=== PATIENT | male | born 1945 | race Caucasian/White ===

== ENCOUNTER 2017-12-30 16:33 | Inpatient (IN) ==
--- NOTE | 2017-12-30 17:33 | ED ---
HPI General Chief Complaint: Psychiatric Symptoms Stated Complaint: VCSO/Psych Eval Time Seen by Provider: 12/30/17 16:47 Source: patient Mode of arrival: other ([facility]) Limitations: no limitations History of Present Illness HPI Narrative: 72-year-old male, homeless, presents to the emergency department via VCSO for evaluation as a Garber act. The officer states he has trespassed numerous times on a property he was evicted from 2 months ago. The officer states his parents months ago and since then he has been homeless. The officer was concerned about foot problems which is a reason for his visit today. He states patient was found sleeping in his feces and patient thought it was ok. Related Data Home Medications Medication Instructions Recorded Confirmed No Known Home Medications 12/30/17 12/30/17 Previous Rx's Medication Instructions Recorded sulfamethoxazole-trimethoprim 1 tab PO Q12H #14 tab 12/30/17 [Bactrim DS] Allergies Allergy/AdvReac Type Severity Reaction Status Date / Time No Known Allergies Allergy Unverified 12/30/17 16:48 Review of Systems ROS: all other systems reviewed are negative [facility] Medical History Medical History Diverticulitis (Acute) Social History Social History Substance History: No History of Abuse Second Hand Smoke Exposure: No Smoking Status: Current every day smoker Tobacco Type: Cigarettes How Often Do You Have a Drink Containing Alcohol: 4 or more times a week Recent Out of Country Travel within the Last 8 Weeks: No Immunization History Tetanus Immunization: Unsure Hx Influenza Vaccine This Season: No Exam Narrative Exam Narrative: GENERAL: WD, thin, disheveled and malodorous SKIN: Focused skin assessment warm/dry. HEAD: Atraumatic. Normocephalic. EYES: Pupils equal and round. No scleral icterus. No injection or drainage. ENT: No nasal bleeding or discharge. Mucous membranes pink and moist. NECK: Trachea midline. No JVD. CARDIOVASCULAR: Regular rate and rhythm. No murmur appreciated. RESPIRATORY: No accessory muscle use. Clear to auscultation. Breath sounds equal bilaterally. GASTROINTESTINAL: Abdomen soft, non-tender, nondistended. Hepatic and splenic margins not palpable. MUSCULOSKELETAL: No obvious deformities. No clubbing. No cyanosis. No edema. Bilateral feet-skin removed with unwrapping gauze exposing friable tissue. erythema without edema to feet NEUROLOGICAL: Awake and alert. No obvious cranial nerve deficits. Motor grossly within normal limits. Normal speech. PSYCHIATRIC: Appropriate mood and affect; insight and judgment normal.He is rather pleasant and answers questions appropriately. Course Initial Documented Vital Signs Temperature 97.3 F L 12/30/17 16:48 Pulse Rate 108 H 12/30/17 16:48 Respiratory Rate 18 12/30/17 16:48 Blood Pressure 116/62 12/30/17 16:48 Pulse Oximetry 97 12/30/17 16:48 Last Documented Vital Signs Temperature 98.8 F 01/02/18 08:00 Pulse Rate 89 01/02/18 08:00 Respiratory Rate 18 01/02/18 08:00 Blood Pressure 106/68 01/02/18 08:00 Pulse Oximetry 98 01/02/18 08:00 Sign Out Sign Out Data: Patient Sign Out occurred on 12/30/17 at 19:47. Patient's care was discussed, and care was transferred from Jodee Cuba to Dexter Elizabeth. Sign Out Comment: patient pending xray of right shoulder, xray of chest shows an anterior dislocation -patient reports that he has had history of dislocations to his right shoulder in the past, patient with no pain to his right shoulder, he is able to range of motion his shoulder without any difficulty. 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 Last updated by Jodee Cuba at 12/30/17 19:47 Post-Handoff Eval: patient has clinically a chronic anterior shoulder dislocation, clinically patinet has no pain, and very good range of motion able to rotate, abduct and adduct without any difficulty... thus no need reduction. will provide ivf to improve mild hyponatremia patient is initially cleared Medical Decision Making SALMA Attestation SALMA supervised visit: Yes Attestation: I, Dr. Cuba, have reviewed the advance practice practitioner's documentation and am in agreement, met with the patient face to face, made the diagnosis, and the medical decision making was done by me. *My assessment and Findings: Patient will need psych evaluation after he is medically cleared MDM Narrative Medical decision making narrative: 72-year-old male brought in by [facility]'s office as a Garber act. Patient apparently had been sleeping in his own feces and did not see a problem with it. They state that he had been trespassing numerous times the location where he previously lived. He denies suicidal or homicidal ideations. Physical exam findings demonstrate a well-developed, thin, disheveled and unkempt 72-year-old male in no acute distress. Patient answers questions appropriately and is rather pleasant. Bilateral lower extremities demonstrate poor foot care. Gauze on feet had apparently been present for some time although patient states that it been there since Monday. Mild erythema of the legs from mid almeida distally. Will treat for possible developing cellulitis. With the assistance of the nurse, cleanse bilateral feet and wrapped with Xeroform and nonstick gauze. Labs are significant for elevated alcohol at 84, no leukocytosis, hyponatremia at 129. I suspect patient drinks alcohol regularly although he initially denied it. Labs are still pending as of transfer of care. CXR demonstrates dislocated shoulder although pt has FROM of shoulder without pain or restriction. Ordered shoulder xray for further evaluation. Medical Screen Exam Complete: Yes Emergency Medical Condition: Yes Differential Diagnosis Differential Diagnosis: Bilateral lower extremity cellulitis, psychosis, delirium, medical clearance exam Lab Data Result diagrams: 01/02/18 06:00 01/02/18 06:00 Lab Results 12/30/17 12/30/17 12/30/17 Range/Units 17:00 17:00 17:00 WBC 7.4 (4.0-11.0) th/mm3 RBC 4.04 L (4.50-5.90) mil/mm3 Hgb 13.8 (13.0-17.0) gm/dL Hct 41.3 (39.0-51.0) % MCV 102.2 H (80.0-100.0) fL MCH 34.3 H (27.0-34.0) pg MCHC 33.5 (32.0-36.0) % RDW 13.1 (11.6-17.2) % Plt Count 306 (150-450) th/mm3 MPV 7.2 (7.0-11.0) fL Neut % (Auto) 73.4 H (16.0-70.0) % Lymph % (Auto) 15.0 (9.0-44.0) % Snyder % (Auto) 10.9 H (0.0-8.0) % Eos % (Auto) 0.5 (0.0-4.0) % Baso % (Auto) 0.2 (0.0-2.0) % Neut # (Auto) 5.4 (1.8-7.7) th/mm3 Lymph # (Auto) 1.1 (1.0-4.8) th/mm3 Snyder # (Auto) 0.8 (0.0-0.9) th/mm3 Eos # (Auto) 0.0 (0.0-0.4) th/mm3 Baso # (Auto) 0.0 (0.0-0.2) th/mm3 WBC Differential . Differential Comment Auto diff final PT (9.8-11.6) sec INR Ratio APTT (24.3-30.1) sec Sodium 129 L (136-145) meq/L Potassium 4.1 (3.5-5.1) meq/L Chloride 92 L (98-107) meq/L Carbon Dioxide 27.0 (21.0-32.0) meq/L Anion Gap 10 (5-15) meq/L BUN 6 L (7-18) mg/dL Creatinine 0.61 (0.60-1.30) mg/dL Estimated GFR Greater than 89 (>89) mL/min POC Glucose (68-110) mg/dl Random Glucose 90 (74-106) mg/dL Calcium 8.2 L (8.5-10.1) mg/dL Prot Corrected Calcium (8.5-10.1) mg/dL Phosphorus (2.5-4.9) mg/dL Iron (65-175) mcg/dL TIBC (250-450) mcg/dL % Saturation (20-50) % Ferritin (26-388) ng/mL Total Bilirubin 0.7 (0.2-1.0) mg/dL AST 29 (15-37) U/L ALT 21 (12-78) U/L Alkaline Phosphatase 98 (45-117) U/L Total Creatine Kinase 65 (39-308) U/L Total Protein 7.0 (6.4-8.2) g/dL Albumin 2.7 L (3.4-5.0) g/dL Vitamin B12 (193-986) pg/mL TSH 2.470 (0.358-3.740) uIU/mL Urine Color (Yellw/Straw) Urine Clarity (Clear) Urine pH (5.0-8.5) Ur Specific [place] (1.002-1.035) Urine Protein (Neg-Trace) mg/dL Urine Glucose (UA) (Negative) mg/dL Urine Ketones (Negative) mg/dL Urine Occult Blood (Negative) Urine Nitrate (Negative) Urine Bilirubin (Negative) Urine Urobilinogen (Less than 2) mg/dL Ur Leukocyte Esterase (Negative) Urine RBC (0-3) /hpf Urine Bacteria (None) /hpf Micro UA Comment Ur Microscopic Review Urine Culture Comments Urine Opiates Screen (Neg) Ur Barbiturates Screen (Neg) Ur Amphetamines Screen (Neg) U Benzodiazepines Scrn (Neg) Urine Cocaine Screen (Neg) U Cannabinoids Screen (Neg) Serum Alcohol 84 H (0-5) mg/dL 12/30/17 12/30/17 12/30/17 Range/Units 18:20 20:31 20:31 WBC (4.0-11.0) th/mm3 RBC (4.50-5.90) mil/mm3 Hgb (13.0-17.0) gm/dL Hct (39.0-51.0) % MCV (80.0-100.0) fL MCH (27.0-34.0) pg MCHC (32.0-36.0) % RDW (11.6-17.2) % Plt Count (150-450) th/mm3 MPV (7.0-11.0) fL Neut % (Auto) (16.0-70.0) % Lymph % (Auto) (9.0-44.0) % Snyder % (Auto) (0.0-8.0) % Eos % (Auto) (0.0-4.0) % Baso % (Auto) (0.0-2.0) % Neut # (Auto) (1.8-7.7) th/mm3 Lymph # (Auto) (1.0-4.8) th/mm3 Snyder # (Auto) (0.0-0.9) th/mm3 Eos # (Auto) (0.0-0.4) th/mm3 Baso # (Auto) (0.0-0.2) th/mm3 WBC Differential Differential Comment PT 10.7 (9.8-11.6) sec INR 1.1 Ratio APTT 33.1 H (24.3-30.1) sec Sodium (136-145) meq/L Potassium (3.5-5.1) meq/L Chloride (98-107) meq/L Carbon Dioxide (21.0-32.0) meq/L Anion Gap (5-15) meq/L BUN (7-18) mg/dL Creatinine (0.60-1.30) mg/dL Estimated GFR (>89) mL/min POC Glucose (68-110) mg/dl Random Glucose (74-106) mg/dL Calcium (8.5-10.1) mg/dL Prot Corrected Calcium (8.5-10.1) mg/dL Phosphorus (2.5-4.9) mg/dL Iron (65-175) mcg/dL TIBC (250-450) mcg/dL % Saturation (20-50) % Ferritin (26-388) ng/mL Total Bilirubin (0.2-1.0) mg/dL AST (15-37) U/L ALT (12-78) U/L Alkaline Phosphatase (45-117) U/L Total Creatine Kinase (39-308) U/L Total Protein (6.4-8.2) g/dL Albumin (3.4-5.0) g/dL Vitamin B12 (193-986) pg/mL TSH (0.358-3.740) uIU/mL Urine Color Yellow (Yellw/Straw) Urine Clarity Clear (Clear) Urine pH 7.0 (5.0-8.5) Ur Specific [place] 1.006 (1.002-1.035) Urine Protein Negative (Neg-Trace) mg/dL Urine Glucose (UA) Negative (Negative) mg/dL Urine Ketones Negative (Negative) mg/dL Urine Occult Blood Negative (Negative) Urine Nitrate Negative (Negative) Urine Bilirubin Negative (Negative) Urine Urobilinogen 4 or greater (Less than 2) mg/dL Ur Leukocyte Esterase Negative (Negative) Urine RBC Less than 1 (0-3) /hpf Urine Bacteria Rare H (None) /hpf Micro UA Comment Culture not ind Ur Microscopic Review Not Reportable Urine Culture Comments Culture not ind Urine Opiates Screen Neg (Neg) Ur Barbiturates Screen Neg (Neg) Ur Amphetamines Screen Neg (Neg) U Benzodiazepines Scrn Neg (Neg) Urine Cocaine Screen Neg (Neg) U Cannabinoids Screen Neg (Neg) Serum Alcohol (0-5) mg/dL 01/01/18 01/01/18 01/01/18 Range/Units 09:29 12:38 23:16 WBC (4.0-11.0) th/mm3 RBC (4.50-5.90) mil/mm3 Hgb (13.0-17.0) gm/dL Hct (39.0-51.0) % MCV (80.0-100.0) fL MCH (27.0-34.0) pg MCHC (32.0-36.0) % RDW (11.6-17.2) % Plt Count (150-450) th/mm3 MPV (7.0-11.0) fL Neut % (Auto) (16.0-70.0) % Lymph % (Auto) (9.0-44.0) % Snyder % (Auto) (0.0-8.0) % Eos % (Auto) (0.0-4.0) % Baso % (Auto) (0.0-2.0) % Neut # (Auto) (1.8-7.7) th/mm3 Lymph # (Auto) (1.0-4.8) th/mm3 Snyder # (Auto) (0.0-0.9) th/mm3 Eos # (Auto) (0.0-0.4) th/mm3 Baso # (Auto) (0.0-0.2) th/mm3 WBC Differential Differential Comment PT (9.8-11.6) sec INR Ratio APTT (24.3-30.1) sec Sodium 132 L (136-145) meq/L Potassium 3.5 (3.5-5.1) meq/L Chloride 98 (98-107) meq/L Carbon Dioxide 25.4 (21.0-32.0) meq/L Anion Gap 9 (5-15) meq/L BUN 3 L (7-18) mg/dL Creatinine 0.49 L (0.60-1.30) mg/dL Estimated GFR Greater than 89 (>89) mL/min POC Glucose 120 H 101 (68-110) mg/dl Random Glucose 65 L (74-106) mg/dL Calcium 8.0 L (8.5-10.1) mg/dL Prot Corrected Calcium (8.5-10.1) mg/dL Phosphorus (2.5-4.9) mg/dL Iron (65-175) mcg/dL TIBC (250-450) mcg/dL % Saturation (20-50) % Ferritin (26-388) ng/mL Total Bilirubin 0.7 (0.2-1.0) mg/dL AST 24 (15-37) U/L ALT 17 (12-78) U/L Alkaline Phosphatase 81 (45-117) U/L Total Creatine Kinase (39-308) U/L Total Protein 5.9 L D (6.4-8.2) g/dL Albumin 2.1 L D (3.4-5.0) g/dL Vitamin B12 (193-986) pg/mL TSH (0.358-3.740) uIU/mL Urine Color (Yellw/Straw) Urine Clarity (Clear) Urine pH (5.0-8.5) Ur Specific [place] (1.002-1.035) Urine Protein (Neg-Trace) mg/dL Urine Glucose (UA) (Negative) mg/dL Urine Ketones (Negative) mg/dL Urine Occult Blood (Negative) Urine Nitrate (Negative) Urine Bilirubin (Negative) Urine Urobilinogen (Less than 2) mg/dL Ur Leukocyte Esterase (Negative) Urine RBC (0-3) /hpf Urine Bacteria (None) /hpf Micro UA Comment Ur Microscopic Review Urine Culture Comments Urine Opiates Screen (Neg) Ur Barbiturates Screen (Neg) Ur Amphetamines Screen (Neg) U Benzodiazepines Scrn (Neg) Urine Cocaine Screen (Neg) U Cannabinoids Screen (Neg) Serum Alcohol (0-5) mg/dL 01/02/18 01/02/18 01/02/18 Range/Units 06:00 06:00 06:00 WBC 5.5 (4.0-11.0) th/mm3 RBC 3.55 L (4.50-5.90) mil/mm3 Hgb 12.4 L (13.0-17.0) gm/dL Hct 35.6 L (39.0-51.0) % MCV 100.4 H (80.0-100.0) fL MCH 35.0 H (27.0-34.0) pg MCHC 34.8 (32.0-36.0) % RDW 13.0 (11.6-17.2) % Plt Count 253 (150-450) th/mm3 MPV 6.9 L (7.0-11.0) fL Neut % (Auto) 66.1 (16.0-70.0) % Lymph % (Auto) 21.2 (9.0-44.0) % Snyder % (Auto) 11.6 H (0.0-8.0) % Eos % (Auto) 0.8 (0.0-4.0) % Baso % (Auto) 0.3 (0.0-2.0) % Neut # (Auto) 3.7 (1.8-7.7) th/mm3 Lymph # (Auto) 1.2 (1.0-4.8) th/mm3 Snyder # (Auto) 0.6 (0.0-0.9) th/mm3 Eos # (Auto) 0.0 (0.0-0.4) th/mm3 Baso # (Auto) 0.0 (0.0-0.2) th/mm3 WBC Differential . Differential Comment Auto diff final PT (9.8-11.6) sec INR Ratio APTT (24.3-30.1) sec Sodium 135 L (136-145) meq/L Potassium 3.4 L (3.5-5.1) meq/L Chloride 99 (98-107) meq/L Carbon Dioxide 26.9 (21.0-32.0) meq/L Anion Gap 9 (5-15) meq/L BUN 5 L (7-18) mg/dL Creatinine 0.47 L (0.60-1.30) mg/dL Estimated GFR Greater than 89 (>89) mL/min POC Glucose (68-110) mg/dl Random Glucose 80 (74-106) mg/dL Calcium 7.7 L Cancelled (8.5-10.1) mg/dL Prot Corrected Calcium 8.4 L Cancelled (8.5-10.1) mg/dL Phosphorus (2.5-4.9) mg/dL Iron 27 L (65-175) mcg/dL TIBC 148 L (250-450) mcg/dL % Saturation 18.2 L (20-50) % Ferritin 690 H (26-388) ng/mL Total Bilirubin (0.2-1.0) mg/dL AST (15-37) U/L ALT (12-78) U/L Alkaline Phosphatase (45-117) U/L Total Creatine Kinase (39-308) U/L Total Protein 5.8 L Cancelled (6.4-8.2) g/dL Albumin (3.4-5.0) g/dL Vitamin B12 180 L (193-986) pg/mL TSH (0.358-3.740) uIU/mL Urine Color (Yellw/Straw) Urine Clarity (Clear) Urine pH (5.0-8.5) Ur Specific [place] (1.002-1.035) Urine Protein (Neg-Trace) mg/dL Urine Glucose (UA) (Negative) mg/dL Urine Ketones (Negative) mg/dL Urine Occult Blood (Negative) Urine Nitrate (Negative) Urine Bilirubin (Negative) Urine Urobilinogen (Less than 2) mg/dL Ur Leukocyte Esterase (Negative) Urine RBC (0-3) /hpf Urine Bacteria (None) /hpf Micro UA Comment Ur Microscopic Review Urine Culture Comments Urine Opiates Screen (Neg) Ur Barbiturates Screen (Neg) Ur Amphetamines Screen (Neg) U Benzodiazepines Scrn (Neg) Urine Cocaine Screen (Neg) U Cannabinoids Screen (Neg) Serum Alcohol (0-5) mg/dL 01/02/18 01/02/18 Range/Units 06:00 08:38 WBC (4.0-11.0) th/mm3 RBC (4.50-5.90) mil/mm3 Hgb (13.0-17.0) gm/dL Hct (39.0-51.0) % MCV (80.0-100.0) fL MCH (27.0-34.0) pg MCHC (32.0-36.0) % RDW (11.6-17.2) % Plt Count (150-450) th/mm3 MPV (7.0-11.0) fL Neut % (Auto) (16.0-70.0) % Lymph % (Auto) (9.0-44.0) % Snyder % (Auto) (0.0-8.0) % Eos % (Auto) (0.0-4.0) % Baso % (Auto) (0.0-2.0) % Neut # (Auto) (1.8-7.7) th/mm3 Lymph # (Auto) (1.0-4.8) th/mm3 Snyder # (Auto) (0.0-0.9) th/mm3 Eos # (Auto) (0.0-0.4) th/mm3 Baso # (Auto) (0.0-0.2) th/mm3 WBC Differential Differential Comment PT (9.8-11.6) sec INR Ratio APTT (24.3-30.1) sec Sodium (136-145) meq/L Potassium (3.5-5.1) meq/L Chloride (98-107) meq/L Carbon Dioxide (21.0-32.0) meq/L Anion Gap (5-15) meq/L BUN (7-18) mg/dL Creatinine (0.60-1.30) mg/dL Estimated GFR (>89) mL/min POC Glucose 87 (68-110) mg/dl Random Glucose (74-106) mg/dL Calcium (8.5-10.1) mg/dL Prot Corrected Calcium (8.5-10.1) mg/dL Phosphorus 2.9 (2.5-4.9) mg/dL Iron (65-175) mcg/dL TIBC (250-450) mcg/dL % Saturation (20-50) % Ferritin (26-388) ng/mL Total Bilirubin (0.2-1.0) mg/dL AST (15-37) U/L ALT (12-78) U/L Alkaline Phosphatase (45-117) U/L Total Creatine Kinase (39-308) U/L Total Protein (6.4-8.2) g/dL Albumin (3.4-5.0) g/dL Vitamin B12 (193-986) pg/mL TSH (0.358-3.740) uIU/mL Urine Color (Yellw/Straw) Urine Clarity (Clear) Urine pH (5.0-8.5) Ur Specific [place] (1.002-1.035) Urine Protein (Neg-Trace) mg/dL Urine Glucose (UA) (Negative) mg/dL Urine Ketones (Negative) mg/dL Urine Occult Blood (Negative) Urine Nitrate (Negative) Urine Bilirubin (Negative) Urine Urobilinogen (Less than 2) mg/dL Ur Leukocyte Esterase (Negative) Urine RBC (0-3) /hpf Urine Bacteria (None) /hpf Micro UA Comment Ur Microscopic Review Urine Culture Comments Urine Opiates Screen (Neg) Ur Barbiturates Screen (Neg) Ur Amphetamines Screen (Neg) U Benzodiazepines Scrn (Neg) Urine Cocaine Screen (Neg) U Cannabinoids Screen (Neg) Serum Alcohol (0-5) mg/dL Imaging Data Radiologist's impression: Chest X-Ray 12/30/17 17:46 CONCLUSION: No acute cardiopulmonary disease. Anterior dislocation of the right shoulder. Head CT 12/30/17 17:46 CONCLUSION: Slight chronic small vessel ischemic and atrophic changes chronic sinusitis . Shoulder X-Ray 12/30/17 19:43 CONCLUSION: Anterior shoulder dislocation on the right. Discharge Plan Discharge Disposition Patient Disposition: 30 Still Patient Discharge Condition Condition: Stable Discharge Details Diagnosis: Trench feet, Encounter for medical screening examination Physicians Team ED Provider: Dexter Elizabeth ED Midlevel Provider: Anisha Curtis Primary Care Provider: Primary Care Elena King Attending Provider: Shayla Umaña Other Providers: [facility],Agency ; Dragan Mota ; [facility],Agency Status ED Status: Left Department Discharge Information Discharge Date/Time: 12/31/17 21:41
[2017-12-30] MEDS ORDERED: Sod Chloride 0.9% Inj 1,000 ML IV.SIG SCH ×2 (18:00→19:45)
[2017-12-30 18:13] LABS: Baso % (Auto) 0.2 % (0.0-2.0); Eos % (Auto) 0.5 % (0.0-4.0); Hematocrit 41.3 % (39.0-51.0); Hemoglobin 13.8 gm/dL (13.0-17.0); Lymph # (Auto) 1.1 th/mm3 (1.0-4.8); Mean Corpuscular HGB Conc 33.5 % (32.0-36.0); Mean Corpuscular Hemoglobin 34.3 pg (27.0-34.0); Mean Corpuscular Volume 102.2 fL (80.0-100.0); Mean Platelet Volume 7.2 fL (7.0-11.0); Mono # (Auto) 0.8 th/mm3 (0.0-0.9); Mono % (Auto) 10.9 % (0.0-8.0); Neut # (Auto) 5.4 th/mm3 (1.8-7.7); Neut % (Auto) 73.4 % (16.0-70.0); Platelet Count 306 th/mm3 (150-450); Red Blood Count 4.04 mil/mm3 (4.50-5.90); Red Cell Distribution Width 13.1 % (11.6-17.2); White Blood Count 7.4 th/mm3 (4.0-11.0)
[2017-12-30 18:15] LABS: Albumin 2.7 g/dL (3.4-5.0); Anion Gap 10 meq/L (5-15); Aspartate Aminotransferase 29 U/L (15-37); Blood Urea Nitrogen 6 mg/dL (7-18); Calcium 8.2 mg/dL (8.5-10.1); Chloride 92 meq/L (98-107); Glomerular Filtration Rate Greater Than 89 mL/min (>89); Glucose,Random 90 mg/dL (74-106); Potassium 4.1 meq/L (3.5-5.1); Sodium 129 meq/L (136-145)
[2017-12-30 18:26] LABS: Alanine Aminotransferase 21 U/L (12-78); Alkaline Phosphatase 98 U/L (45-117)
--- NOTE | 2017-12-30 18:28 | CT ---
EXAM DATE: 12/30/2017 6:20 PM EDT AGE/SEX: 72 years / Male INDICATIONS: Altered mental status. CLINICAL DATA: This is the patient's initial encounter. Patient reports that signs and symptoms have been present for 1 day and indicates a pain score of 0/10. MEDICAL/SURGICAL HISTORY: Diverticulitis. . hernia repair RADIATION DOSE: 56.35 CTDI (mGy) COMPARISON: No prior exams available for comparison. TECHNIQUE: CT of the head without contrast. Using automated exposure control and adjustment of the mA and/or kV according to patient size, radiation dose was kept as low as reasonably achievable to ob tain optimal diagnostic quality images. DICOM format image data is available electronically for revi ew and comparison. FINDINGS: There is no evidence for intracranial hemorrhage, mass effect, mass lesions, or edema. The visualized bony structures appear intact. Slight degree of brain atrophy is seen. Slight periventri cular white matter changes are seen nonspecific mostly consistent with chronic small vessel ischemic changes. There are no signs of acute infarction for technique. There is mild mucoperiosteal thickeni ng within some of the sinuses mainly the ethmoid air cells. CONCLUSION: Slight chronic small vessel ischemic and atrophic changes chronic sinusitis . Electronically signed by: Victorino Crawley MD 12/30/2017 6:27 PM EDT
[2017-12-30 18:29] LABS: Alcohol 84 mg/dL (0-5)
--- NOTE | 2017-12-30 18:30 | XR ---
EXAM DATE: 12/30/2017 6:26 PM EDT AGE/SEX: 72 years / Male INDICATIONS: Shortness of breath. Open wounds on bilateral feet. CLINICAL DATA: This is the patient's initial encounter. Patient reports that signs and symptoms have been present for 2 weeks and indicates a pain score of 5/10. MEDICAL/SURGICAL HISTORY: None. None. COMPARISON: No prior exams available for comparison. FINDINGS: The lungs are clear without infiltrate, nodule, or mass. There is no appreciable pleural effusion for technique. Heart and mediastinum are unremarkable. There is anterior dislocation of the right shoulder. Chronic and degenerative change is in both shoulders as well. CONCLUSION: No acute cardiopulmonary disease. Anterior dislocation of the right shoulder. Electronically signed by: Victorino Crawley MD 12/30/2017 6:29 PM EDT
[2017-12-30 19:01] LABS: Activated Partial Thrombo Time 33.1 sec (24.3-30.1); INR 1.1 Ratio; Prothrombin Time 10.7 sec (9.8-11.6)
--- NOTE | 2017-12-30 20:10 | XR ---
EXAM DATE: 12/30/2017 8:05 PM EDT AGE/SEX: 72 years / Male INDICATIONS: Right shoulder pain. No known injury. CLINICAL DATA: This is the patient's initial encounter. Patient reports that signs and symptoms have been present for 1 day and indicates a pain score of 2/10. MEDICAL/SURGICAL HISTORY: . Diverticulitis. . Hernia repair. Right rotator cuff surgery. COMPARISON: . FINDINGS: There is anterior shoulder dislocation on the right. Superimposed degenerative changes pres ent in the glenohumeral joint. CONCLUSION: Anterior shoulder dislocation on the right. Electronically signed by: Victorino Crawley MD 12/30/2017 8:09 PM EDT
[2017-12-30 22:14] LABS: Bacteria,Urine Rare /hpf; Bilirubin,Urine Negative (Negative); Clarity,Urine Clear (Clear); Color,Urine Yellow (Yellw/Straw); Glucose,Urine (UA) Negative (Negative); Leukocyte Esterase,Urine Negative (Negative); Nitrite,Urine Negative (Negative); Specific Gravity,Urine 1.006 (1.002-1.035); Urobilinogen,Urine 4 or Greater mg/dL (Less than 2)
[2017-12-30 22:20] LABS: Amphetamine Screen,Urine Neg (Neg); Barbiturate Screen,Urine Neg (Neg); Cannabinoid Screen,Urine Neg (Neg); Cocaine Screen,Urine Neg (Neg)
[2017-12-30 22:28] LABS: Opiate Screen,Urine Neg (Neg)
--- NOTE | 2017-12-31 11:56 | ECG ---
Date Performed: 12/30/2017 Time Performed: 18:31:26 PTAGE: 72 years EKG: Sinus rhythm SEPTAL MYOCARDIAL INFARCTION ABNORMAL ECG NO PREVIOUS TRACING There is much artifact,no prior ekg to compare with. DOCTOR: Darryl Henderson Interpretating Date/Time 12/31/2017 11:52:50
[2017-12-31] MEDS ORDERED: Bisacodyl 10 MG Supp RECTAL PRN (19:49)
[2017-12-31] MEDS ORDERED: Acetaminophen 325 MG Tablet PO PRN (19:49)
[2017-12-31] MEDS: Senna/Docusate Sodium 8.6/50 MG Tablet PO SCH (21:12)
--- NOTE | 2017-12-31 21:46 | P.HPIM ---
History of Present Illness Primary Care Physician: No Primary Care Physician History of Present Illness: This is a 72-year-old Homeless male who was brought to the ER under Garber Act by Police after trespassing on a property he previously was evicted from. Pt was apparently being cared for by his mother until she , then was cared for by his sister until she , now has been living on the streets, found sleeping in feces, unable to care for self, +wounds to bilateral feet w/ difficulty ambulating. Case Management has been consulted to assist w/ placement. Pt without complaints. Labs essentially unremarkable. Alcohol 89. CT Head w/ no acute changes. Shoulder X-ray w/ dislocation, full range of motion on exam. - Diagnosis (1) Total self-care deficit Review of Systems PAST FAMILY HISTORY: Unknown All other systems reviewed negative except as stated in HPI PENDING SALE TO [facility] - History History Provided By: Patient - Medical History Medical History: Medical History (Last Reviewed 12/30/17 @ 17:33 by ESTHELA Hathaway) Diverticulitis (Acute) - Surgical History Surgical History: Surgical History (Last Updated 12/30/17 @ 17:17 by Keila Acosta) H/O hernia repair (Acute) - Tobacco History Second Hand Smoke Exposure: No Tobacco Use In Past 30 Days: Yes Smoking Status: Current every day smoker Tobacco Type: Cigarettes - Alcohol History How Often Do You Have a Drink Containing Alcohol: 4 or more times a week - Substance Use History Substance History: No History of Abuse - Travel History Recent Travel Out of the Country Within the Last 8 Weeks: No - Immunization History Tetanus Immunization: Unsure Hx Influenza Vaccine This Season: No Medications and Allergies Active Medications: Active Medications Acetaminophen (Tylenol) 650 mg PO Q4H PRN PRN Reason: Temp > 100.4 Al Hydroxide/Mg Hydroxide (Milk Of Magnesia Liq) 30 ml PO Q12H PRN PRN Reason: Mild Constipation Bisacodyl (Dulcolax Supp) 10 mg RECTAL DAILY PRN PRN Reason: SEVERE CONSITIPATION Sodium Chloride (Ns Inj) 1,000 mls @ 0 mls/hr IV.SIG BOLUS [facility] Last Infusion: 12/30/17 20:24 Dose: Infused Sodium Chloride (Ns Inj) 1,000 mls @ 0 mls/hr IV.SIG BOLUS [facility] Last Infusion: 12/30/17 22:30 Dose: Infused Lactulose (Lactulose Liq) 30 ml PO DAILY PRN PRN Reason: SEVERE CONSITIPATION Ondansetron HCl (Zofran Inj) 4 mg IV.PUSH Q6H PRN PRN Reason: NAUSEA OR VOMITING Senna/Docusate Sodium (Marina-Colace) 1 tab PO BID [facility] Last Admin: 12/31/17 21:12 Dose: Not Given Sennosides (Senokot) 17.2 mg PO Q12H PRN PRN Reason: Moderate Constipation Allergies Allergy/AdvReac Type Severity Reaction Status Date / Time No Known Allergies Allergy Unverified 12/30/17 16:48 Home Medications Medication Instructions Recorded Confirmed Type No Known Home Medications 12/30/17 12/30/17 History Exam Vital signs: Vital Signs 12/30/17 22:58 12/31/17 05:00 12/31/17 08:16 Temperature Pulse Rate 93 H Respiratory Rate 16 16 19 Blood Pressure 124/82 Pulse Oximetry 98 97 12/31/17 14:22 12/31/17 18:27 12/31/17 18:45 Temperature 98.4 F Pulse Rate 100 H 88 Respiratory Rate 21 21 Blood Pressure 106/68 106/65 Pulse Oximetry 95 96 12/31/17 20:00 Temperature 98.6 F Pulse Rate 88 Respiratory Rate 16 Blood Pressure 127/68 Pulse Oximetry 97 Intake & Output 12/31/17 12/31/17 01/01/18 06:59 18:59 06:59 Intake Total 1000 / 1000 Balance 1000 / 1000 Intake: IV 1000 / 1000 NS Inj 1,000 ML @ Wide Open IV. 1000 / 1000 SIG BOLUS [facility] Rx#:[id number] Narrative: PE: GENERAL: Thin elderly white male in no acute distress, disheveled. SKIN: Focused skin assessment warm and dry. HEENT: PERRLA, EOMI. No scleral icterus or conjunctival pallor. No lid lag or facial droop. CARDIOVASCULAR: Regular rate and rhythm. No obvious murmurs to auscultation. No chest tenderness to palpation. RESPIRATORY: No obvious rhonchi or wheezing. Clear to auscultation. Breath sounds equal bilaterally. GASTROINTESTINAL: Abdomen soft, non-tender, nondistended. BS normal. MUSCULOSKELETAL: Extremities without clubbing, cyanosis, or edema. No obvious deformities. Wounds to bilateral feet NEUROLOGICAL: Awake, alert and oriented x4. No focal neurologic deficits. Moving both upper and lower extremities spontaneously. PSYCHIATRIC: Appropriate mood and affect. Insight and judgment normal. Results - Labs CBC & Chem 7: 12/30/17 17:00 12/30/17 17:00 Labs: Urine 12/30/17 Range/Units 20:31 Urine Color Yellow (Yellw/Straw) Urine Clarity Clear (Clear) Urine pH 7.0 (5.0-8.5) Ur Specific [place] 1.006 (1.002-1.035) Urine Protein Negative (Neg-Trace) mg/dL Urine Glucose (UA) Negative (Negative) mg/dL Caprini VTE Risk Assessment Caprini VTE Risk Assessment: No/Low Risk (score <= 1) Caprini Risk Assessment Model: Point Value = 1 Point Value = 2 Point Value = 3 Point Value = 5 Age 41-60 Minor surgery BMI > 25 kg/m2 Swollen legs Varicose veins or History of unexplained or recurrent spontaneous Oral contraceptives or hormone replacement Sepsis (< 1 month) Serious lung disease, including pneumonia (< 1 month) Abnormal pulmonary function Acute myocardial infarction Congestive heart failure (< 1 month) History of inflammatory bowel disease Medical patient at bed rest Age 61-74 Arthroscopic surgery Major open surgery (> 45 min) Laparoscopic surgery (> 45 min) Malignancy Confined to bed (> 72 hours) Immobilizing plaster cast Central venous access Age >= 75 History of VTE Family history of VTE Factor V Leiden Prothrombin [id number] Lupus anticoagulant Anticardiolipin antibodies Elevated serum homocysteine Heparin-induced thrombocytopenia Other congenital or acquired thrombophilia Stroke (< 1 month) Elective arthroplasty Hip, pelvis, or leg fracture Acute spinal cord injury (< 1 month) Prophylaxis Regimen: Total Risk Factor Score Risk Level Prophylaxis Regimen 0-1 Low Early ambulation 2 Moderate Order ONE of the following: *Sequential Compression Device (SCD) *Heparin 5000 units SQ BID 3-4 Higher Order ONE of the following medications: *Heparin 5000 units SQ TID *Enoxaparin/Lovenox 40 mg SQ daily (WT < 150 kg, CrCl > 30 mL/min) *Enoxaparin/Lovenox 30 mg SQ daily (WT < 150 kg, CrCl > 10-29 mL/min) *Enoxaparin/Lovenox 30 mg SQ BID (WT < 150 kg, CrCl > 30 mL/min) AND/OR *Sequential Compression Device (SCD) 5 or more Highest Order ONE of the following medications: *Heparin 5000 units SQ TID (Preferred with Epidurals) *Enoxaparin/Lovenox 40 mg SQ daily (WT < 150 kg, CrCl > 30 mL/min) *Enoxaparin/Lovenox 30 mg SQ daily (WT < 150 kg, CrCl > 10-29 mL/min) *Enoxaparin/Lovenox 30 mg SQ BID (WT < 150 kg, CrCl > 30 mL/min) AND *Sequential Compression Device (SCD) Assessment and Plan - Assessment (1) Total self-care deficit Code(s): R41.89 - Other symptoms and signs involving cognitive functions and awareness Status: Acute - Plan A/P: 1. Total Self Care Deficit: pt is Homeless, unable to care for self, + bilateral foot wounds w/ difficulty ambulating. Initially under BA, however BA lifted after Psych eval. Case Management on board to assist w/ placement. Will consult PT for eval/tx and Wound Management for bilateral feet wounds. 2. DVT Prophylaxis: Mechanical contraindication due to wound 3. Social work for d/c planning 4. Case discussed w/ ER physician at length, labs/records/imaging reviewed by me
[2018-01-01] MEDS ORDERED: Haloperidol Inj 5 MG/ML Ampul IV.PUSH PRN (07:51)
[2018-01-01] MEDS ORDERED: LORazepam 1 MG Tablet PO PRN (07:51)
[2018-01-01 10:07] LABS: Alanine Aminotransferase 17 U/L (12-78); Albumin 2.1 g/dL (3.4-5.0); Anion Gap 9 meq/L (5-15); Aspartate Aminotransferase 24 U/L (15-37); Blood Urea Nitrogen 3 mg/dL (7-18); Carbon Dioxide 25.4 meq/L (21.0-32.0); Chloride 98 meq/L (98-107); Glomerular Filtration Rate Greater Than 89 mL/min (>89); Glucose,Random 65 mg/dL (74-106); Potassium 3.5 meq/L (3.5-5.1); Sodium 132 meq/L (136-145)
[2018-01-01 10:08] LABS: Alkaline Phosphatase 81 U/L (45-117); Total Protein 5.9 g/dL (6.4-8.2)
[2018-01-01] MEDS: Folic Acid 1 MG Tablet PO SCH (11:40)
[2018-01-01] MEDS: Senna/Docusate Sodium 8.6/50 MG Tablet PO SCH ×2 (11:41→21:21)
--- NOTE | 2018-01-01 12:30 | P.DIET ---
Nutritional Evaluation Type of nutrition evaluation: initial Nutrition consult regarding: Diet Evaluation Nutrition screening: MDC (Malnutrition) Objective - Diagnosis garber act - Objective [place] body weight: 59 kg % IBW: 77 Body Weight Used for Calculations: IBW Energy Needs - Lower Range (kCal/kg): 30 Energy Needs - Upper Range (kCal/kg): 35 Lower Limit kCal/kg (kCals): 1,770 Upper Limit kCal/kg (kCals): 2,065 Lower Limit Protein Factor (Grams per Kg): 1 Upper Limit Protein Factor (Grams per Kg): 1.5 Lower Protein Needs (Protein): 59 Upper Protein Needs (Protein): 89 Dietitian Reviewed in Medical Record: Current diet, Curent medications, Labs, Medical history Diet Order: Regular Objective Comments: Homeless Assessment Assessment: Pt. is at nutritional risk due to dx. Pt. is a homeless male who was brought to the ER under Garber Act by Police after trespassing on a property he previously was evicted from. Pt was apparently being cared for by his mother until she , then was cared for by his sister until she , now has been living on the streets, found sleeping in feces, unable to care for self, + wounds to bilateral feet w/ difficulty ambulating. Agree with Vitamin B1, Theragran and folic acid. Will change ensure to ensure complete. Encourage supplement intake. Monitor PO intake and labs. Recommendations: 1. Will change ensure to ensure complete. 2. Encourage supplement intake. 3. Monitor PO intake and labs. Dietitian to Monitor: Lab values, Intake & Output, Diet tolerance, Weight change , PO Intake, Wound/skin status, Medical course
[2018-01-01] MEDS ORDERED: Dextrose 50% in Water 50 ML Vial IV.PUSH PRN (12:32)
--- NOTE | 2018-01-01 12:48 | P.PN ---
Subjective Interval history: Follow up on patient with malnutrition, bilateral foot wounds. Patient seen and examined. He is mostly oriented. Patient states he lives in a condo on [address]. He knows he is at [place] and in [facility]. He states the year is 2018. Kristin GONZALEZ informs me he was able to correctly tell her the year earlier today. He has bilateral foot wounds. He believes they started a few weeks ago and were itchy. He denies any injury, bug bites, etc. He wears flip flops. He denies any fever or chills. He cannot tell me if they are getting better or worse. He says they are not really painful. Physical Exam Vital signs: Vital Signs 12/31/17 14:22 12/31/17 18:27 12/31/17 18:45 Temperature 98.4 F Pulse Rate 100 H 88 Respiratory Rate 21 21 Blood Pressure 106/68 106/65 Pulse Oximetry 95 96 12/31/17 20:00 01/01/18 00:00 01/01/18 04:00 Temperature 98.6 F 97.7 F 98.6 F Pulse Rate 88 90 90 Respiratory Rate 16 16 Blood Pressure 127/68 114/61 97/56 L Pulse Oximetry 97 96 96 01/01/18 08:41 Temperature 98.5 F Pulse Rate 89 Respiratory Rate 18 Blood Pressure 92/50 L Pulse Oximetry 95 Intake & Output 12/31/17 01/01/18 01/01/18 18:59 06:59 18:59 Weight 45.359 kg Narrative: GENERAL: WDWN male patient, INAD. Awake and alert. Oriented x 2-3. SKIN: Warm and dry. +erythema over tops of both feet extending up to mid almeida R >L with desquamation of skin over top of both feet and small area of yellowish drainage on left foot. Bottoms of both are spared. HEAD: Atraumatic. Normocephalic. EYES: Pupils equal and round. No scleral icterus. No injection or drainage. ENT: No nasal bleeding or discharge. Mucous membranes pink and moist. NECK: Trachea midline. CARDIOVASCULAR: Regular rate and rhythm. RESPIRATORY: No accessory muscle use. Clear to auscultation. Breath sounds equal bilaterally. GASTROINTESTINAL: Abdomen soft, non-tender, nondistended. Hepatic and splenic margins not palpable. MUSCULOSKELETAL: Extremities without clubbing, cyanosis, or edema. No obvious deformities. NEUROLOGICAL: Awake and alert. No obvious cranial nerve deficits. Motor grossly within normal limits. Five out of 5 muscle strength in the arms and legs. Normal speech. PSYCHIATRIC: Appropriate mood and affect; insight and judgment normal. Results - Labs CBC & Chem 7: 12/30/17 17:00 01/01/18 09:29 Laboratory Results - last 24 hr 01/01/18 09:29 Sodium 132 L Potassium 3.5 Chloride 98 Carbon Dioxide 25.4 Anion Gap 9 BUN 3 L Creatinine 0.49 L Estimated GFR Greater than 89 Random Glucose 65 L Calcium 8.0 L Total Bilirubin 0.7 AST 24 ALT 17 Alkaline Phosphatase 81 Total Protein 5.9 L D Albumin 2.1 L D Assessment and Plan - Assessment (1) Total self-care deficit Code(s): R41.89 - Other symptoms and signs involving cognitive functions and awareness Status: Acute - Plan 72-year-old Homeless male who was brought to the ER under Garber Act by Police after trespassing on a property he previously was evicted from. Bilateral foot wounds, difficulty with ambulation Possible cellulitis -Consult ID, appreciate assistance -wound culture ordered, follow up on results -wound care consulted -keep bilateral feet elevated Suspected alcohol abuse Serum alcohol 84 -CIWA protocol -Thiamine, MVI, Folate daily -monitor for signs of withdrawal Hypoglycemia, BS 65, asymptomatic Hypotensive, BP 92/50, MAP 64, asymptomatic -IVF with D5W with KCL -accuchecks -hypoglycemic protocol -fall precautions -monitor for improvement Hyponatremia, asymptomatic Suspect secondary to alcohol use Na 129 -repeat level with slight trend up, 132 -as above -continue to monitor Total Self Care Deficit: pt is Homeless, unable to care for self, initially under BA, however BA lifted after Psych eval Severe protein calorie malnutrition -Consult chain maker hand -Add Ensure supplements TID with meals -Multivitamin daily Macrocytosis, suspect secondary to alcohol abuse H&H normal, suspect hemoconcentration -Obtain iron studies, ferritin, B12 and folate level -Repeat CBC in a.m. Right shoulder anterior dislocation, incidental finding from chest x-ray Patient has no right shoulder complaints, full range of motion on exam -Recommended patient follow-up with PCP or orthopedist as outpatient DVT Prophylaxis: Mechanical contraindication due to wound Code Status: FULL Discussed Condition With: patient, nursing staff, Dr. Umaña Discharge Planning: Not ready for discharge
[2018-01-01] MEDS ORDERED: Potassium Chloride Inj 10 MEQ in Dextrose 5% in Water Inj 1,000 ML IV.CONT SCH ×2 (13:00)
[2018-01-01] MEDS ORDERED: Sodium Chlor 0.9% Inj 250 ML IV.SIG ONE (13:03)
--- NOTE | 2018-01-01 15:14 | P.CONPSY ---
Provisional Diagnosis Admission Date: December 31, 2017 19:06 [place] I.: Alcohol-induced mood disorder, alcohol use disorder History of Present Illness Service: ER Primary Care Provider: No Primary Care Physician History of Present Illness: The patient is 72-year-old man, homeless, single, former media assistant , no previous psychiatric history, no suicide attempts, no prepsychotic hospitalizations, alcohol use disorder, who presents to the emergency department via [facility] for evaluation as a Garber act. The officer states he has trespassed numerous times on a property he was evicted from 2 months ago. The officer states his parents months ago and since then he has been homeless. The patient was brought to the hospital by the police with concerns of self car. On my psychiatric evaluation today I find a patient that is calm, cooperative, very pleasant. The patient reports to be in a good mood, he says that he needs help, denies symptomatology of depression, denies anhedonia, hopelessness, helplessness, anxiety, denies suicidal and homicidal ideation, denies visual and auditory hallucinations. The patient is fully oriented x3, without attention deficit, without fluctuation of consciousness at the moment. [facility] - History History Provided By: Patient - Medical History Medical History: Medical History (Last Reviewed 01/01/18 @ 14:14 by Marichuy Galvin) Diverticulitis (Acute) - Surgical History Surgical History: Surgical History (Last Reviewed 01/01/18 @ 14:14 by Marichuy Galvin) H/O hernia repair (Acute) - Tobacco History Second Hand Smoke Exposure: No Tobacco Use In Past 30 Days: Yes Smoking Status: Current every day smoker Tobacco Type: Cigarettes - Alcohol History How Often Do You Have a Drink Containing Alcohol: 4 or more times a week - Substance Use History Substance History: No History of Abuse - Travel History Recent Travel Out of the Country Within the Last 8 Weeks: No - Immunization History Tetanus Immunization: Unsure Hx Influenza Vaccine This Season: No Medications and Allergies Active Medications: Active Medications Acetaminophen (Tylenol) 650 mg PO Q4H PRN PRN Reason: Temp > 100.4 Al Hydroxide/Mg Hydroxide (Milk Of Magnesia Liq) 30 ml PO Q12H PRN PRN Reason: Mild Constipation Bisacodyl (Dulcolax Supp) 10 mg RECTAL DAILY PRN PRN Reason: SEVERE CONSITIPATION Dextrose (D50w Vial) 50 ml IV.PUSH UNSCH PRN PRN Reason: PER HYPOGLYCEMIA PROTOCOL Flumazenil (Romazecon Inj) 0.2 mg IV.PUSH Q1M PRN PRN Reason: OVERSEDATION Folic Acid (Folic Acid) 1 mg PO DAILY [facility] Last Admin: 01/01/18 11:40 Dose: 1 mg Glucagon (Glucagon Inj) 1 mg OTHER PRN PRN PRN Reason: for Hypoglycemia Protocol Haloperidol Lactate (Haldol Inj) 1 mg IV.PUSH Q15M PRN PRN Reason: for severe agitation Sodium Chloride (Ns Inj) 1,000 mls @ 0 mls/hr IV.SIG BOLUS [facility] Last Infusion: 12/30/17 20:24 Dose: Infused Sodium Chloride (Ns Inj) 1,000 mls @ 0 mls/hr IV.SIG BOLUS [facility] Last Infusion: 12/30/17 22:30 Dose: Infused Lactulose (Lactulose Liq) 30 ml PO DAILY PRN PRN Reason: SEVERE CONSITIPATION Lorazepam (Ativan) 1 mg PO Q4H PRN PRN Reason: for CIWA 8-10 Lorazepam (Ativan Inj) 2 mg IV.PUSH Q2H PRN PRN Reason: for CIWA 11-14 Lorazepam (Ativan Inj) 2 mg IV.PUSH Q1H PRN PRN Reason: for CIWA 15-20 Lorazepam (Ativan Inj) 2 mg IV.PUSH Q15M PRN PRN Reason: for CIWA > 20 Lorazepam (Ativan Inj) 1 mg IV.PUSH Q4H PRN PRN Reason: for CIWA 8-10 Lorazepam (Ativan) 2 mg PO Q2H PRN PRN Reason: for CIWA 11-14 Multivitamins (Theragran) 1 tab PO DAILY [facility] Last Admin: 01/01/18 11:40 Dose: 1 tab Ondansetron HCl (Zofran Inj) 4 mg IV.PUSH Q6H PRN PRN Reason: NAUSEA OR VOMITING Senna/Docusate Sodium (Marina-Colace) 1 tab PO BID [facility] Last Admin: 01/01/18 11:41 Dose: Not Given Sennosides (Senokot) 17.2 mg PO Q12H PRN PRN Reason: Moderate Constipation Thiamine HCl (Vitamin B1) 100 mg PO BID [facility] Last Admin: 01/01/18 11:40 Dose: 100 mg Allergies Allergy/AdvReac Type Severity Reaction Status Date / Time No Known Allergies Allergy Unverified 12/30/17 16:48 Home Medications Medication Instructions Recorded Confirmed Type No Known Home Medications 12/30/17 12/30/17 History Exam Vital signs: Vital Signs 12/31/17 18:27 12/31/17 18:45 12/31/17 20:00 Temperature 98.4 F 98.6 F Pulse Rate 88 88 Respiratory Rate 21 16 Blood Pressure 106/65 127/68 Pulse Oximetry 96 97 01/01/18 00:00 01/01/18 04:00 01/01/18 08:41 Temperature 97.7 F 98.6 F 98.5 F Pulse Rate 90 90 89 Respiratory Rate 16 18 Blood Pressure 114/61 97/56 L 92/50 L Pulse Oximetry 96 96 95 01/01/18 12:14 Temperature 98.2 F Pulse Rate 90 Respiratory Rate 20 Blood Pressure 95/54 L Pulse Oximetry 96 Intake & Output 12/31/17 01/01/18 01/01/18 18:59 06:59 18:59 Intake Total 250 / 250 Balance 250 / 250 Weight 45.359 kg Intake: IV 250 / 250 NS Inj 250 ML @ Wide Open IV. 250 / 250 SIG BOLUS [facility] Rx#:[id number] Mental Status Examination Appearance: Appropriate Consciousness: Alert Orientation: x4 Motor Activity: Normal gait Speech: Unremarkable Language: Adequate Fund of Knowledge: Adequate Attention and Concentration: Adequate Memory: Unremarkable Mood: Appropriate Affect: Appropriate Thought Process & Associations: Intact Thought Content: Appropriate Hallucination Type: None Delusion Type: None Suicidal Ideation: No Suicidal Plan: No Suicidal Intention: No Homicidal Ideation: No Homicidal Plan: No Homicidal Intention: No Insight: Adequate Judgment: Adequate Assessment and Plan - Assessment (1) Adjustment disorder with depressed mood Code(s): F43.21 - Adjustment disorder with depressed mood Status: Acute - Plan Plan: Estimated LOS: [] days On My psychiatric evaluation today the patient does not present any neuropsychiatric symptoms or require immediate psychiatric intervention. The patient denies depression, anxiety, alba and psychosis. He denies suicidal and homicidal ideation, denies visual and auditory hallucinations. The patient is fully oriented x3. I do not find any reason to keep this patient on the Garber act, he does not meet criteria for involuntary psychiatric admission. Justification for Continued Inpatient Stay: No psychiatric admission is indicated at this moment
--- NOTE | 2018-01-01 15:42 | P.PNWCN ---
Wound Care Nurse Consult Description: Consult for Wound Management of feet per Dr Bettencourt Communicated with: ESTHELA Truong RN Patient Recommendation: Continue current treatment of single layer Xeroform to cleansed open partial thickness skin loss noted to dorsum of feet and lower anterior extremities. Cover with gauze and secure with rolled gauze daily. Additional information: Patient seen in G pod briefly for attempted evaluation of feet. Patient states that his feet were just cleansed and wrapped and refused assessment at this time. Spoke with Dionne PROCTOR and Kristin RN regarding wounds and treatment that is appropriate for type of wounds described.
--- NOTE | 2018-01-01 20:08 | MB ---
cc: Dragan Mota MD,Shayla HOOKER DATE: 01/01/2018 REQUESTING PHYSICIAN: Shayla Umaña MD REASON FOR CONSULTATION: Bilateral lower extremity wounds/cellulitis. HISTORY OF PRESENT ILLNESS: This is a 72-year-old white man who is homeless. The patient presented to the emergency department on 12/30/2017 with psychiatric problems. The patient reportedly was trespassing on property from which he was evicted and was Garber Acted. He reportedly was found sleeping in feces. In the emergency department, his temperature was normal. His white blood cell count was normal also. During the process of evaluation, the patient was found to have wounds of both lower extremities with the superficial layer of skin having peeled off and diffuse redness from the distal tibia down to the foot and weeping at the areas where the skin had peeled off. A culture was taken from the foot and is pending. The patient states that he has no complaints. He is also noted to be an alcoholic and has a serum alcohol level of 84 with normal being 0 to 5. PAST MEDICAL HISTORY: The patient denies medical problems. He states that he does not go to doctors. Medical chart record reports diverticulitis and history of hernia. ALLERGIES: NO KNOWN DRUG ALLERGIES. MEDICATIONS: 1. Thiamine. 2. Marina-Colace. 3. Theragran. 4. Folic acid. SOCIAL HISTORY: Positive tobacco. Positive alcohol. No history of illicit drug use. FAMILY HISTORY: Difficult to obtain. REVIEW OF SYSTEMS: All systems reviewed and the patient denies any positive systems review. PHYSICAL EXAMINATION: GENERAL: This is a disheveled, frail, cachectic-appearing male who is in no acute distress. VITAL SIGNS: Temperature 98.2, BP 95/54, respirations 20, heart rate 90. HEENT: Head is atraumatic. Extraocular movements grossly intact. Pupils reactive to light. No icterus. Oropharynx with moist mucosa without lesions. NECK: Supple without adenopathy. LUNGS: Clear breath sounds bilaterally. HEART: Regular S1 and S2 without murmurs, rubs or gallops. ABDOMEN: Bowel sounds present. Flat, soft, nontender. RECTAL: Not performed. EXTREMITIES: Both legs have erythema from the mid tibia down to the foot. There is denuded skin in large areas over the tibias and over the dorsum of the foot. The nails are in poor state and there is black debris between the toes. SKIN: No diffuse rash. NEUROLOGIC: No gross focal findings. PSYCHIATRIC: The patient is calm. LABORATORY DATA: WBC 7.4, platelets 306, hemoglobin 15.8. Creatinine 0.49. Estimated GFR greater than 89. Liver function tests normal. CT of the head shows slight chronic small vessel ischemic and atrophic changes. Chest x-ray shows no acute disease. Anterior dislocation of the right shoulder is noted. ASSESSMENT: Cellulitis of the legs and chronic ulcerative lesions of the legs. Probably infection due to streptococcus bacteria. RECOMMENDATIONS: 1. Give IV ceftriaxone. 2. Monitor wound culture. 3. Adjust antibiotics depending on culture results and response to antibiotic treatment. Thank you for this consultation. The patient's progress will be monitored and further recommendations were given on followup if necessary. MD RE Cummings/silvia , 04:26 PM , 04:38 PM
[2018-01-02 07:23] LABS: Baso % (Auto) 0.3 % (0.0-2.0); Eos % (Auto) 0.8 % (0.0-4.0); Hematocrit 35.6 % (39.0-51.0); Hemoglobin 12.4 gm/dL (13.0-17.0); Lymph # (Auto) 1.2 th/mm3 (1.0-4.8); Lymph % (Auto) 21.2 % (9.0-44.0); Mean Corpuscular HGB Conc 34.8 % (32.0-36.0); Mean Corpuscular Volume 100.4 fL (80.0-100.0); Mean Platelet Volume 6.9 fL (7.0-11.0); Mono # (Auto) 0.6 th/mm3 (0.0-0.9); Mono % (Auto) 11.6 % (0.0-8.0); Neut # (Auto) 3.7 th/mm3 (1.8-7.7); Neut % (Auto) 66.1 % (16.0-70.0); Platelet Count 253 th/mm3 (150-450); Red Blood Count 3.55 mil/mm3 (4.50-5.90); White Blood Count 5.5 th/mm3 (4.0-11.0)
[2018-01-02 07:51] LABS: % Iron Saturation 18.2 % (20-50); Anion Gap 9 meq/L (5-15); Blood Urea Nitrogen 5 mg/dL (7-18); Calcium 7.7 mg/dL (8.5-10.1); Carbon Dioxide 26.9 meq/L (21.0-32.0); Chloride 99 meq/L (98-107); Glomerular Filtration Rate Greater Than 89 mL/min (>89); Glucose,Random 80 mg/dL (74-106); Iron 27 mcg/dL (65-175); Potassium 3.4 meq/L (3.5-5.1); Sodium 135 meq/L (136-145); Total Iron Binding Capacity 148 mcg/dL (250-450)
[2018-01-02 08:16] LABS: Ferritin 690 ng/mL (26-388); Vitamin B12 180 pg/mL (193-986)
[2018-01-02] MEDS: Folic Acid 1 MG Tablet PO SCH (08:40)
[2018-01-02] MEDS: Senna/Docusate Sodium 8.6/50 MG Tablet PO SCH ×2 (08:40→20:12)
[2018-01-02 10:50] LABS: Total Protein 5.8 g/dL (6.4-8.2)
--- NOTE | 2018-01-02 15:02 | P.PN ---
Subjective Interval history: Follow up on patient with malnutrition, bilateral foot wounds. Patient seen and examined. Patient has no medical complaints. States he slept well. Denies any fever chills. Denies any chest pain or shortness of breath. Denies any nausea, vomiting or abdominal pain. When asked how his feet are doing he replies "they are there". He denies any complaints of pain. Physical Exam Vital signs: Vital Signs 01/01/18 19:40 01/01/18 23:38 01/02/18 04:00 Temperature 98.1 F 98.6 F 97.8 F Pulse Rate 89 85 80 Respiratory Rate 17 18 18 Blood Pressure 110/66 108/56 L 121/67 Pulse Oximetry 97 93 L 01/02/18 08:00 01/02/18 12:00 Temperature 98.8 F 97.6 F Pulse Rate 89 79 Respiratory Rate 18 18 Blood Pressure 106/68 97/63 L Pulse Oximetry 98 98 Intake & Output 01/01/18 01/02/18 01/02/18 18:59 06:59 18:59 Intake Total 350 / 350 500 / 500 Balance 350 / 350 500 / 500 Intake: IV 350 / 350 NS Inj 250 ML @ Wide Open IV. 250 / 250 SIG BOLUS ONE Rx#:[id number] Rocephin Inj 1,000 MG In NS Inj 100 / 100 100 ML @ 200 mls/hr IV.SIG Q24H [facility] Rx#:[id number] Oral 500 / 500 Other: # Voids 2 Date of Last Bowel Movement 12/30/17 Narrative: GENERAL: Thin unkempt cachectic appearing male patient, INAD. Awake and alert. Appears comfortable. SKIN: Warm and dry. +erythema over tops of both feet extending up to mid almeida R >L with desquamation of skin over top of both feet and small area of yellowish drainage on left foot. Bottoms of both are spared. HEENT: Atraumatic. Normocephalic. Pupils equal and round. No scleral icterus. No injection or drainage. No nasal bleeding or discharge. Mucous membranes pink and moist. NECK: Trachea midline. CARDIOVASCULAR: Regular rate and rhythm. RESPIRATORY: No accessory muscle use. Clear to auscultation. Breath sounds equal bilaterally. GASTROINTESTINAL: Abdomen soft, non-tender, nondistended. +BS. MUSCULOSKELETAL: Extremities without clubbing, cyanosis, or edema. No obvious deformities. NEUROLOGICAL: Awake and alert. No obvious cranial nerve deficits. Motor grossly within normal limits. Able to move all extremities spontaneously. Normal speech. PSYCHIATRIC: Calm and cooperative. Results - Labs CBC & Chem 7: 01/02/18 06:00 01/02/18 06:00 Laboratory Results - last 24 hr 01/01/18 01/02/18 01/02/18 23:16 06:00 06:00 WBC 5.5 RBC 3.55 L Hgb 12.4 L Hct 35.6 L MCV 100.4 H MCH 35.0 H MCHC 34.8 RDW 13.0 Plt Count 253 MPV 6.9 L Neut % (Auto) 66.1 Lymph % (Auto) 21.2 [place] % (Auto) 11.6 H Eos % (Auto) 0.8 Baso % (Auto) 0.3 Neut # (Auto) 3.7 Lymph # (Auto) 1.2 [place] # (Auto) 0.6 Eos # (Auto) 0.0 Baso # (Auto) 0.0 WBC Differential . Differential Comment Auto diff final Sodium 135 L Potassium 3.4 L Chloride 99 Carbon Dioxide 26.9 Anion Gap 9 BUN 5 L Creatinine 0.47 L Estimated GFR Greater than 89 POC Glucose 101 Random Glucose 80 Calcium 7.7 L Prot Corrected Calcium 8.4 L Phosphorus Iron 27 L TIBC 148 L % Saturation 18.2 L Ferritin 690 H Total Protein 5.8 L Vitamin B12 180 L 01/02/18 01/02/18 01/02/18 06:00 06:00 08:38 WBC RBC Hgb Hct MCV MCH MCHC RDW Plt Count MPV Neut % (Auto) Lymph % (Auto) [place] % (Auto) Eos % (Auto) Baso % (Auto) Neut # (Auto) Lymph # (Auto) [place] # (Auto) Eos # (Auto) Baso # (Auto) WBC Differential Differential Comment Sodium Potassium Chloride Carbon Dioxide Anion Gap BUN Creatinine Estimated GFR POC Glucose 87 Random Glucose Calcium Cancelled Prot Corrected Calcium Cancelled Phosphorus 2.9 Iron TIBC % Saturation Ferritin Total Protein Cancelled Vitamin B12 01/02/18 13:25 WBC RBC Hgb Hct MCV MCH MCHC RDW Plt Count MPV Neut % (Auto) Lymph % (Auto) [place] % (Auto) Eos % (Auto) Baso % (Auto) Neut # (Auto) Lymph # (Auto) [place] # (Auto) Eos # (Auto) Baso # (Auto) WBC Differential Differential Comment Sodium Potassium Chloride Carbon Dioxide Anion Gap BUN Creatinine Estimated GFR POC Glucose 165 H Random Glucose Calcium Prot Corrected Calcium Phosphorus Iron TIBC % Saturation Ferritin Total Protein Vitamin B12 Microbiology 01/01/18 11:30 Wound - Foot Gram Stain - Final 01/01/18 11:30 Wound - Foot Wound Culture - Preliminary gram negative rods Assessment and Plan - Assessment (1) Total self-care deficit Code(s): R41.89 - Other symptoms and signs involving cognitive functions and awareness Status: Acute - Plan 72-year-old Homeless male who was brought to the ER under [place] Act by Police after trespassing on a property he previously was evicted from. Bilateral foot wounds, difficulty with ambulation Possible cellulitis -ID following, appreciate assistance. Started on IV ceftriaxone, continue. -wound culture pending -Daily dressing changes with Xeroform and 4 x 4's -keep bilateral feet elevated Suspected alcohol abuse Serum alcohol 84 -[facility] protocol -Thiamine, MVI, Folate daily -monitor for signs of withdrawal Hypoglycemia, BS 65, asymptomatic Hypotensive, BP 92/50, MAP 64, asymptomatic -Blood sugars and blood pressure improved. Patient eating well. -accuchecks -hypoglycemic protocol -fall precautions Hyponatremia, asymptomatic Suspect secondary to alcohol use Na 129 -Sodium level trending up, now 135 -as above -continue to monitor Hypokalemia -Oral repletion ordered -Repeat potassium level in a.m. Hypocalcemia, mild -Tums po B12 deficiency B12 level 180 -give 1000mcg IM x 1, will repeat in am Total Self Care Deficit: pt is Homeless, unable to care for self, initially under BA, however BA lifted after Psych eval Severe protein calorie malnutrition -Length Control Tester consulted -Ensure supplements TID with meals -Multivitamin daily -continue with PT/OT Macrocytosis, suspect secondary to alcohol abuse H&H normal, suspect hemoconcentration iron studies reviewed -repeat H/H trended down some but stable -Continue to monitor CBC as indicated Right shoulder anterior dislocation, incidental finding from chest x-ray Patient has no right shoulder complaints, full range of motion on exam -Recommended patient follow-up with PCP or orthopedist as outpatient DVT Prophylaxis: Mechanical contraindication due to wound Code Status: FULL Discussed Condition With: patient, nursing staff, Dr. Umaña Discharge Planning: Not ready for discharge. Patient will need placement. Case management assisting with discharge planning.
--- NOTE | 2018-01-02 17:38 | P.PNID ---
Subjective Remarks: Patient states that he feels okay. Denies fever or chills. Wound culture from the leg has gram-negative sancho. This is a 72-year-old white man who is homeless. The patient presented to the emergency department on 12/30/2017 with psychiatric problems. The patient reportedly was trespassing on property from which he was evicted and was [place] Acted. He reportedly was found sleeping in feces. During the process of evaluation, the patient was found to have wounds of both lower extremities with the superficial layer of skin having peeled off and diffuse redness from the distal tibia down to the foot and weeping at the areas where the skin had peeled off. Past Medical History: PAST MEDICAL HISTORY: The patient denies medical problems. He states that he does not go to doctors. Medical chart record reports diverticulitis and history of hernia. Allergies/Adverse Reactions: Allergies No Known Allergies Allergy (Unverified 12/30/17 16:48) Objective Vital Signs 01/01/18 19:40 01/01/18 23:38 01/02/18 04:00 Temperature 98.1 F 98.6 F 97.8 F Pulse Rate 89 85 80 Respiratory Rate 17 18 18 Blood Pressure 110/66 108/56 L 121/67 Pulse Oximetry 97 93 L 01/02/18 08:00 01/02/18 12:00 01/02/18 16:00 Temperature 98.8 F 97.6 F 98.7 F Pulse Rate 89 79 79 Respiratory Rate 18 18 18 Blood Pressure 106/68 97/63 L 96/55 L Pulse Oximetry 98 98 98 Intake & Output 01/01/18 01/02/18 01/02/18 18:59 06:59 18:59 Intake Total 350 / 350 500 / 500 Balance 350 / 350 500 / 500 Intake: IV 350 / 350 NS Inj 250 ML @ Wide Open IV. 250 / 250 SIG BOLUS ONE Rx#:[id number] Rocephin Inj 1,000 MG In NS Inj 100 / 100 100 ML @ 200 mls/hr IV.SIG Q24H [facility] Rx#:[id number] Oral 500 / 500 Other: # Voids 2 Date of Last Bowel Movement 12/30/17 01/01/18 11:30 Wound - Foot Gram Stain - Final 01/01/18 11:30 Wound - Foot Wound Culture - Preliminary gram negative rods Lab - Hematology Results 01/02/18 06:00 WBC 5.5 RBC 3.55 L Hgb 12.4 L Hct 35.6 L MCV 100.4 H MCH 35.0 H MCHC 34.8 RDW 13.0 Plt Count 253 MPV 6.9 L Neut % (Auto) 66.1 Lymph % (Auto) 21.2 [place] % (Auto) 11.6 H Eos % (Auto) 0.8 Baso % (Auto) 0.3 Neut # (Auto) 3.7 Lymph # (Auto) 1.2 [place] # (Auto) 0.6 Eos # (Auto) 0.0 Baso # (Auto) 0.0 WBC Differential . Differential Comment Auto diff final Lab - Chemistry Results 01/01/18 01/01/18 01/01/18 09:29 12:38 23:16 Sodium 132 L Potassium 3.5 Chloride 98 Carbon Dioxide 25.4 Anion Gap 9 BUN 3 L Creatinine 0.49 L Estimated GFR Greater than 89 POC Glucose 120 H 101 Random Glucose 65 L Calcium 8.0 L Prot Corrected Calcium Phosphorus Iron TIBC % Saturation Ferritin Total Bilirubin 0.7 AST 24 ALT 17 Alkaline Phosphatase 81 Total Protein 5.9 L D Albumin 2.1 L D Vitamin B12 01/02/18 01/02/18 01/02/18 06:00 06:00 06:00 Sodium 135 L Potassium 3.4 L Chloride 99 Carbon Dioxide 26.9 Anion Gap 9 BUN 5 L Creatinine 0.47 L Estimated GFR Greater than 89 POC Glucose Random Glucose 80 Calcium 7.7 L Cancelled Prot Corrected Calcium 8.4 L Cancelled Phosphorus 2.9 Iron 27 L TIBC 148 L % Saturation 18.2 L Ferritin 690 H Total Bilirubin AST ALT Alkaline Phosphatase Total Protein 5.8 L Cancelled Albumin Vitamin B12 180 L 01/02/18 01/02/18 08:38 13:25 Sodium Potassium Chloride Carbon Dioxide Anion Gap BUN Creatinine Estimated GFR POC Glucose 87 165 H Random Glucose Calcium Prot Corrected Calcium Phosphorus Iron TIBC % Saturation Ferritin Total Bilirubin AST ALT Alkaline Phosphatase Total Protein Albumin Vitamin B12 Imaging: ITS Impressions Chest X-Ray 12/30/17 17:46 CONCLUSION: No acute cardiopulmonary disease. Anterior dislocation of the right shoulder. Head CT 12/30/17 17:46 CONCLUSION: Slight chronic small vessel ischemic and atrophic changes chronic sinusitis . Shoulder X-Ray 12/30/17 19:43 CONCLUSION: Anterior shoulder dislocation on the right. Physical Exam: PHYSICAL EXAMINATION: GENERAL: This is a disheveled, frail, cachectic-appearing male who is in no acute distress. HEENT: No icterus. Oropharynx with moist mucosa without lesions. NECK: Supple without adenopathy. LUNGS: Clear breath sounds bilaterally. HEART: Regular S1 and S2 without murmurs, rubs or gallops. ABDOMEN: Bowel sounds present. Flat, soft, nontender. EXTREMITIES: Both legs have erythema from the mid tibia down to the foot. There is denuded skin in large areas over the tibias and over the dorsum of the foot. The nails are in poor state and there is black debris between the toes. SKIN: No diffuse rash. NEUROLOGIC: No gross focal findings. PSYCHIATRIC: Calm. Assessment and Plan - Plan IMPRESSION: Cellulitis of the legs and chronic ulcerative lesions of the legs. Culture has gram-negative sancho. RECOMMENDATIONS: 1. Continue IV ceftriaxone. 2. Monitor wound culture.
[2018-01-03 05:53] LABS: Anion Gap 9 meq/L (5-15); Blood Urea Nitrogen 5 mg/dL (7-18); Calcium 7.6 mg/dL (8.5-10.1); Carbon Dioxide 23.9 meq/L (21.0-32.0); Chloride 102 meq/L (98-107); Glomerular Filtration Rate Greater Than 89 mL/min (>89); Glucose,Random 83 mg/dL (74-106); Potassium 3.9 meq/L (3.5-5.1); Sodium 135 meq/L (136-145)
--- NOTE | 2018-01-03 07:38 | P.PN ---
Subjective Interval history: Follow up on patient with malnutrition, bilateral foot wounds. Patient seen and examined. Patient appears extremely comfortable. He has no complaints. No fever or chills. No chest pain or shortness of breath. Denies any nausea, vomiting or abdominal pain. Denies any pain in his feet. Physical Exam Vital signs: Vital Signs 01/02/18 08:00 01/02/18 12:00 01/02/18 16:00 Temperature 98.8 F 97.6 F 98.7 F Pulse Rate 89 79 79 Respiratory Rate 18 18 18 Blood Pressure 106/68 97/63 L 96/55 L Pulse Oximetry 98 98 98 01/02/18 20:00 01/03/18 00:00 01/03/18 04:00 Temperature 99.1 F 99 F 98.6 F Pulse Rate 84 87 83 Respiratory Rate 17 16 17 Blood Pressure 101/61 101/62 91/58 L Pulse Oximetry 96 95 95 01/03/18 07:12 Temperature 98.8 F Pulse Rate 86 Respiratory Rate 18 Blood Pressure 91/53 L Pulse Oximetry 95 Intake & Output 01/02/18 01/03/18 01/03/18 18:59 06:59 18:59 Intake Total 600 / 600 Balance 600 / 600 Intake: IV 100 / 100 Rocephin Inj 1,000 MG In NS Inj 100 / 100 100 ML @ 200 mls/hr IV.SIG Q24H [facility] Rx#:[id number] Oral 500 / 500 Other: Date of Last Bowel Movement 01/01/18 Narrative: GENERAL: Thin unkempt cachectic appearing male patient, INAD. Awake and alert. Sitting up in bed eating breakfast. SKIN: Warm and dry. +erythema over tops of both feet extending up to mid almeida R >L with desquamation of skin over top of both feet and small area of yellowish drainage on left foot, improving with less erythema. Bottoms of both are spared. HEENT: Atraumatic. Normocephalic. Pupils equal and round. No scleral icterus. No injection or drainage. No nasal bleeding or discharge. Mucous membranes pink and moist. NECK: Trachea midline. CARDIOVASCULAR: Regular rate and rhythm. RESPIRATORY: No accessory muscle use. Clear to auscultation. Breath sounds equal bilaterally. GASTROINTESTINAL: Abdomen soft, non-tender, nondistended. +BS. MUSCULOSKELETAL: Extremities without clubbing, cyanosis, or edema. No obvious deformities. NEUROLOGICAL: Awake and alert. No obvious cranial nerve deficits. Motor grossly within normal limits. Able to move all extremities spontaneously. Normal speech. PSYCHIATRIC: Calm and cooperative. Results - Labs CBC & Chem 7: 01/02/18 06:00 01/03/18 05:00 Laboratory Results - last 24 hr 01/02/18 01/02/18 01/02/18 06:00 06:00 06:00 Sodium 135 L Potassium 3.4 L Chloride 99 Carbon Dioxide 26.9 Anion Gap 9 BUN 5 L Creatinine 0.47 L Estimated GFR Greater than 89 POC Glucose Random Glucose 80 Calcium 7.7 L Cancelled Prot Corrected Calcium 8.4 L Cancelled Phosphorus 2.9 Iron 27 L TIBC 148 L % Saturation 18.2 L Ferritin 690 H Total Protein 5.8 L Cancelled Vitamin B12 180 L 01/02/18 01/02/18 01/02/18 08:38 13:25 22:49 Sodium Potassium Chloride Carbon Dioxide Anion Gap BUN Creatinine Estimated GFR POC Glucose 87 165 H 89 Random Glucose Calcium Prot Corrected Calcium Phosphorus Iron TIBC % Saturation Ferritin Total Protein Vitamin B12 01/03/18 05:00 Sodium 135 L Potassium 3.9 Chloride 102 Carbon Dioxide 23.9 Anion Gap 9 BUN 5 L Creatinine 0.38 L Estimated GFR Greater than 89 POC Glucose Random Glucose 83 Calcium 7.6 L Prot Corrected Calcium Phosphorus Iron TIBC % Saturation Ferritin Total Protein Vitamin B12 Microbiology 01/01/18 11:30 Wound - Foot Gram Stain - Final 01/01/18 11:30 Wound - Foot Wound Culture - Preliminary gram negative rods Assessment and Plan - Assessment (1) Total self-care deficit Code(s): R41.89 - Other symptoms and signs involving cognitive functions and awareness Status: Acute - Plan 72-year-old Homeless male who was brought to the ER under [place] Act by Police after trespassing on a property he previously was evicted from. Bilateral foot wounds/cellulitis, difficulty with ambulation, improving Wound culture growing Pseudomonas and staph -ID following, appreciate assistance. Started on IV ceftriaxone, continue. -Daily dressing changes with Xeroform and 4 x 4's -keep bilateral feet elevated Hypotensive, BP 80/54, MAP 62, asymptomatic -give 500mg IVF bolus -continue to monitor BP closely -fall precautions Hyponatremia, asymptomatic Suspect secondary to alcohol use Na 129 -Sodium level trending up, now 135 -as above -continue to monitor Hypokalemia -resolved s/p po repletion -continue to monitor K as indicated Hypocalcemia, mild -Tums po Hypoglycemia, BS 65, asymptomatic -Blood sugars much improved, DC Accu-Cheks B12 deficiency B12 level 180 -repeat 1000mcg IM x 1 Suspected alcohol abuse Serum alcohol 84 -[facility] protocol -Thiamine, MVI, Folate daily -monitor for signs of withdrawal Total Self Care Deficit: pt is Homeless, unable to care for self, initially under BA, however BA lifted after Psych eval Severe protein calorie malnutrition -Sales Marketing Manager consulted -Ensure supplements TID with meals -Multivitamin daily -continue with PT/OT Macrocytosis, suspect secondary to alcohol abuse H&H normal, suspect hemoconcentration iron studies reviewed -repeat H/H trended down some but stable -Continue to monitor CBC as indicated Right shoulder anterior dislocation, incidental finding from chest x-ray Patient has no right shoulder complaints, full range of motion on exam -Recommended patient follow-up with PCP or orthopedist as outpatient DVT Prophylaxis: Mechanical contraindication due to bilateral lower extremity wounds Heparin sq Code Status: FULL Discussed Condition With: patient, nursing staff, Dr. Umaña Discharge Planning: Not ready for discharge. Patient will need placement. Case management assisting with discharge planning.
[2018-01-03] MEDS: Folic Acid 1 MG Tablet PO SCH (08:36)
[2018-01-03] MEDS: Senna/Docusate Sodium 8.6/50 MG Tablet PO SCH ×2 (08:36→22:10)
[2018-01-03] MEDS ORDERED: Sodium Chlor 0.9% Inj 500 ML IV.SIG SCH (16:00)
[2018-01-03] MEDS: Heparin - SQ 10,000 UNITS/ML Vial SQ SCH ×2 (22:11→22:15)
[2018-01-04 07:50] LABS: Alanine Aminotransferase 16 U/L (12-78); Anion Gap 7 meq/L (5-15); Aspartate Aminotransferase 22 U/L (15-37); Blood Urea Nitrogen 13 mg/dL (7-18); Calcium 8.4 mg/dL (8.5-10.1); Carbon Dioxide 27.1 meq/L (21.0-32.0); Chloride 101 meq/L (98-107); Glomerular Filtration Rate Greater Than 89 mL/min (>89); Glucose,Random 83 mg/dL (74-106); Sodium 135 meq/L (136-145); Total Protein 5.8 g/dL (6.4-8.2)
[2018-01-04 07:51] LABS: Albumin 2.1 g/dL (3.4-5.0); Alkaline Phosphatase 82 U/L (45-117)
--- NOTE | 2018-01-04 09:20 | P.PN ---
Subjective Interval history: Follow up on patient with malnutrition, bilateral foot wounds. Patient seen and examined. Patient has no complaints. States he feels good. Denies any fever chills. Denies any chest pain or shortness of breath. Denies any nausea , vomiting or abdominal pain. States he is urinating well and denies any diarrhea or constipation. Discussed with nursing staff, no acute events noted overnight. Physical Exam Vital signs: Vital Signs 01/03/18 12:00 01/03/18 16:00 01/03/18 17:03 Temperature 98.7 F 98.6 F Pulse Rate 85 88 Respiratory Rate 16 18 Blood Pressure 80/54 L 83/53 L 99/51 L Pulse Oximetry 97 96 01/03/18 20:00 01/04/18 00:00 01/04/18 04:00 Temperature 98.8 F 98.3 F 98.3 F Pulse Rate 88 78 89 Respiratory Rate 16 16 18 Blood Pressure 96/53 L 95/59 L 113/64 Pulse Oximetry 95 95 96 01/04/18 08:00 Temperature 98.1 F Pulse Rate 86 Respiratory Rate 16 Blood Pressure 111/62 Pulse Oximetry 95 Intake & Output 01/03/18 01/04/18 01/04/18 18:59 06:59 18:59 Intake Total 350 / 350 120 / 120 Balance 350 / 350 120 / 120 Intake: IV 100 / 100 Rocephin Inj 1,000 MG In NS Inj 100 / 100 100 ML @ 200 mls/hr IV.SIG Q24H [facility] Rx#:[id number] Oral 250 / 250 120 / 120 Other: # Voids 1 Narrative: GENERAL: Thin unkempt cachectic appearing male patient, INAD. Awake and alert. Sitting up on side of bed eating breakfast. SKIN: Warm and dry. +erythema over tops of both feet extending up to mid almeida R >L with desquamation of skin over top of both feet and small area of yellowish drainage on left foot, improving with less erythema. Bottoms of both are spared. HEENT: Atraumatic. Normocephalic. Pupils equal and round. No scleral icterus. No injection or drainage. No nasal bleeding or discharge. Mucous membranes pink and moist. NECK: Trachea midline. CARDIOVASCULAR: Regular rate and rhythm. RESPIRATORY: No accessory muscle use. Clear to auscultation. Breath sounds equal bilaterally. GASTROINTESTINAL: Abdomen soft, non-tender, nondistended. +BS. MUSCULOSKELETAL: Extremities without clubbing, cyanosis, or edema. No obvious deformities. NEUROLOGICAL: Awake and alert. No obvious cranial nerve deficits. Motor grossly within normal limits. Able to move all extremities spontaneously. Normal speech. PSYCHIATRIC: Calm and cooperative. Results - Labs CBC & Chem 7: 01/02/18 06:00 01/04/18 06:35 Laboratory Results - last 24 hr 01/03/18 01/04/18 13:04 06:35 Sodium 135 L Potassium 4.0 Chloride 101 Carbon Dioxide 27.1 Anion Gap 7 BUN 13 Creatinine 0.57 L Estimated GFR Greater than 89 POC Glucose 191 H Random Glucose 83 Calcium 8.4 L D Total Bilirubin 0.2 AST 22 ALT 16 Alkaline Phosphatase 82 Total Protein 5.8 L Albumin 2.1 L Microbiology 01/01/18 11:30 Wound - Foot Gram Stain - Final 01/01/18 11:30 Wound - Foot Wound Culture - Preliminary Pseudomonas species Staphylococcus aureus Assessment and Plan - Assessment (1) Total self-care deficit Code(s): R41.89 - Other symptoms and signs involving cognitive functions and awareness Status: Acute - Plan 72-year-old Homeless male who was brought to the ER under [place] Act by Police after trespassing on a property he previously was evicted from. Bilateral foot wounds/cellulitis, difficulty with ambulation, improving Wound culture growing Pseudomonas and staph -ID following, appreciate assistance. Started on IV ceftriaxone, continue. -Daily dressing changes with Xeroform and 4 x 4's -keep bilateral feet elevated Hypotensive, BP 80/54, MAP 62, asymptomatic -BP improved, 111/62 this am -continue to monitor BP closely -fall precautions -check orthostatics Hyponatremia, asymptomatic Suspect secondary to alcohol use Na 129 -Sodium level trending up, now 135 -as above -continue to monitor Hypokalemia -resolved s/p po repletion -continue to monitor K as indicated Hypocalcemia, mild -Tums po Hypoglycemia, BS 65, asymptomatic -Blood sugars much improved, DC Accu-Cheks B12 deficiency B12 level 180 -given IM B12 x 2, start on po B12 1000mcg daily Suspected alcohol abuse Serum alcohol 84 -[facility] protocol -Thiamine, MVI, Folate daily -monitor for signs of withdrawal Total Self Care Deficit: pt is Homeless, unable to care for self, initially under BA, however BA lifted after Psych eval Severe protein calorie malnutrition -Lavatory Attendant consulted -Ensure supplements TID with meals -Multivitamin daily -continue with PT/OT Macrocytosis, suspect secondary to alcohol abuse H&H normal, suspect hemoconcentration iron studies reviewed -repeat H/H trended down some but stable -Continue to monitor CBC as indicated Right shoulder anterior dislocation, incidental finding from chest x-ray Patient has no right shoulder complaints, full range of motion on exam -Recommended patient follow-up with PCP or orthopedist as outpatient DVT Prophylaxis: Mechanical contraindication due to bilateral lower extremity wounds Heparin sq Code Status: FULL Discussed Condition With: patient, nursing staff, Dr Leyva, Dr. Mota Discharge Planning: Not ready for discharge. Patient will need placement. Case management assisting with discharge planning.
[2018-01-04] MEDS: Heparin - SQ 10,000 UNITS/ML Vial SQ SCH ×3 (09:24→20:28)
[2018-01-04] MEDS: Senna/Docusate Sodium 8.6/50 MG Tablet PO SCH ×2 (09:24→20:28)
[2018-01-04] MEDS: Folic Acid 1 MG Tablet PO SCH (09:24)
--- NOTE | 2018-01-04 13:08 | P.PNID ---
Subjective Remarks: Patient states that he feels okay. No complaints. Wound culture from the leg has pseudomonas. Afebrile. This is a 72-year-old white man who is homeless. The patient presented to the emergency department on 12/30/2017 with psychiatric problems. The patient reportedly was trespassing on property from which he was evicted and was [employer]. He reportedly was found sleeping in feces. During the process of evaluation, the patient was found to have wounds of both lower extremities with the superficial layer of skin having peeled off and diffuse redness from the distal tibia down to the foot and weeping at the areas where the skin had peeled off. Past Medical History: PAST MEDICAL HISTORY: The patient denies medical problems. He states that he does not go to doctors. Medical chart record reports diverticulitis and history of hernia. Allergies/Adverse Reactions: Allergies No Known Allergies Allergy (Unverified 12/30/17 16:48) Objective Vital Signs 01/03/18 16:00 01/03/18 17:03 01/03/18 20:00 Temperature 98.6 F 98.8 F Pulse Rate 88 88 Respiratory Rate 18 16 Blood Pressure 83/53 L 99/51 L 96/53 L Pulse Oximetry 96 95 01/04/18 00:00 01/04/18 04:00 01/04/18 08:00 Temperature 98.3 F 98.3 F 98.1 F Pulse Rate 78 89 86 Respiratory Rate 16 18 16 Blood Pressure 95/59 L 113/64 111/62 Pulse Oximetry 95 96 95 01/04/18 11:58 Temperature 97.9 F Pulse Rate 97 H Respiratory Rate 16 Blood Pressure 89/59 L Pulse Oximetry 96 Intake & Output 01/03/18 01/04/18 01/04/18 18:59 06:59 18:59 Intake Total 350 / 350 120 / 120 Balance 350 / 350 120 / 120 Intake: IV 100 / 100 Rocephin Inj 1,000 MG In NS Inj 100 / 100 100 ML @ 200 mls/hr IV.SIG Q24H VICENTA Rx#:[id number] Oral 250 / 250 120 / 120 Other: # Voids 1 Date of Last Bowel Movement 01/01/18 01/01/18 11:30 Wound - Foot Gram Stain - Final 01/01/18 11:30 Wound - Foot Wound Culture - Final Pseudomonas aeruginosa Staphylococcus aureus Lab - Chemistry Results 01/02/18 01/02/18 01/03/18 13:25 22:49 05:00 Sodium 135 L Potassium 3.9 Chloride 102 Carbon Dioxide 23.9 Anion Gap 9 BUN 5 L Creatinine 0.38 L Estimated GFR Greater than 89 POC Glucose 165 H 89 Random Glucose 83 Calcium 7.6 L Total Bilirubin AST ALT Alkaline Phosphatase Total Protein Albumin 01/03/18 01/03/18 01/04/18 08:41 13:04 06:35 Sodium 135 L Potassium 4.0 Chloride 101 Carbon Dioxide 27.1 Anion Gap 7 BUN 13 Creatinine 0.57 L Estimated GFR Greater than 89 POC Glucose 101 191 H Random Glucose 83 Calcium 8.4 L D Total Bilirubin 0.2 AST 22 ALT 16 Alkaline Phosphatase 82 Total Protein 5.8 L Albumin 2.1 L Imaging: ITS Impressions Chest X-Ray 12/30/17 17:46 CONCLUSION: No acute cardiopulmonary disease. Anterior dislocation of the right shoulder. Head CT 12/30/17 17:46 CONCLUSION: Slight chronic small vessel ischemic and atrophic changes chronic sinusitis . Shoulder X-Ray 12/30/17 19:43 CONCLUSION: Anterior shoulder dislocation on the right. Physical Exam: PHYSICAL EXAMINATION: GENERAL: No acute distress. HEENT: No icterus. Oropharynx with moist mucosa without lesions. NECK: Supple without adenopathy. LUNGS: Breath sounds are clear. HEART: Regular S1 and S2 without murmurs, rubs or gallops. ABDOMEN: Bowel sounds present. Flat, soft, nontender. EXTREMITIES: The legs have less erythema from the mid tibia down to the foot. SKIN: No diffuse rash. NEUROLOGIC: No gross focal findings. PSYCHIATRIC: Calm. Assessment and Plan - Plan IMPRESSION: Cellulitis of the legs and chronic ulcerative lesions of the legs. Infection due to pseudomonas aeruginosa and staph aureus. RECOMMENDATIONS: 1. Stop ceftriaxone. 2. Give Levaquin PO x 7 days. I will sign off now.
[2018-01-04] MEDS ORDERED: Sodium Chlor 0.9% Inj 250 ML IV.SIG SCH (18:00)
[2018-01-05 01:34] VITALS: RESP 20
[2018-01-05] MEDS: Senna/Docusate Sodium 8.6/50 MG Tablet PO SCH (09:24)
[2018-01-05] MEDS: Folic Acid 1 MG Tablet PO SCH (09:24)
[2018-01-05] MEDS: Heparin - SQ 10,000 UNITS/ML Vial SQ SCH (09:25)
[2018-01-05 14:01] VITALS: BP 97/57; PULSE 91; TEMP 98.1; O2SAT 97
--- NOTE | 2018-01-05 14:48 | P.DS ---
Date of admission: 01/02/18 12:01 Primary care physician: No Primary Care Physician Brief History from admission: HPI from the admitting physician 72-year-old Homeless male who was brought to the ER under [employer] Act by Police after trespassing on a property he previously was evicted from. Pt was apparently being cared for by his mother until she , then was cared for by his sister until she , now has been living on the streets, found sleeping in feces, unable to care for self, +wounds to bilateral feet w/ difficulty ambulating. Case Management has been consulted to assist w/ placement. Pt without complaints. Labs essentially unremarkable. Alcohol 89. CT Head w/ no acute changes. Shoulder X-ray w/ dislocation, full range of motion on exam. Patient update on day of discharge: Patient reports he is feeling great and states he likes it here but agreeable to SNF placement. DS: Medications - Discharge Medications Prescriptions: levofloxacin [Levaquin] 750 mg PO DAILY #7 tab DS: Summary Hospital Course: 72-year-old Homeless male who was brought to the ER under [employer] Act by Police after trespassing on a property he previously was evicted from. The patient obviously is no longer able to care for himself. Patient was admitted and treated for the following: Bilateral foot wounds/cellulitis, difficulty with ambulation, improving Wound culture growing Pseudomonas and staph -Infectious disease followed the patient and he was treated with IV antibiotics. He is discharged to SNF on oral Levaquin for 7 days per ID recs. -Daily dressing changes with Xeroform and 4 x 4's -keep bilateral feet elevated Borderline low BP, Asymptomatic -BP improved Multiple electrolyte abnormalities including Hyponatremia, hypokalemia, Hypocalcemia - All corrected or significantly improved with replacement. B12 deficiency B12 level 180 -given IM B12 x 2, start on po B12 1000mcg daily Suspected alcohol abuse Serum alcohol 84 -WA protocol -Thiamine, MVI, Folate daily -Pass withdrawal window Total Self Care Deficit: pt is Homeless, unable to care for self, initially under BA, however BA lifted after Psych eval Severe protein calorie malnutrition -Etl Application Developer consulted -Ensure supplements TID with meals -Multivitamin daily -continue with PT/OT Macrocytosis, suspect secondary to alcohol abuse H&H normal iron studies reviewed - H&H stable Right shoulder anterior dislocation, incidental finding from chest x-ray Patient has no right shoulder complaints, full range of motion on exam -Recommended patient follow-up with PCP or orthopedist as outpatient - Time Spent with Patient Total time spent providing and/or coordinating discharge services: Greater than 30 minutes - Quality: VTE Deep Vein Thrombosis/Pulmonary Embolism Present on Admission: No Exam Vital signs: Vital Signs 01/04/18 17:00 01/04/18 20:00 01/05/18 00:00 Temperature 97.8 F 97.8 F 98.2 F Pulse Rate 85 84 84 Respiratory Rate 18 18 20 Blood Pressure 104/62 100/59 L 99/55 L Pulse Oximetry 96 99 96 01/05/18 04:00 01/05/18 08:00 01/05/18 12:00 Temperature 97.9 F 98.2 F 98.1 F Pulse Rate 82 82 91 H Respiratory Rate 20 20 20 Blood Pressure 108/58 L 103/63 97/57 L Pulse Oximetry 96 96 97 Intake & Output 01/04/18 01/05/18 01/05/18 18:59 06:59 18:59 Intake Total 340 / 340 Balance 340 / 340 Weight 45.7 kg 46 kg Intake: IV 100 / 100 Rocephin Inj 1,000 MG In NS Inj 100 / 100 100 ML @ 200 mls/hr IV.SIG Q24H [facility] Rx#:[id number] Oral 240 / 240 Other: # Voids 3 Date of Last Bowel Movement 01/01/18 01/01/18 Weight On Admission 45.7 kg Narrative: GENERAL: Cachectic appearing male patient, INAD. Awake and alert. SKIN: Mild erythema over tops of both feet CARDIOVASCULAR: Regular rate and rhythm. RESPIRATORY: No accessory muscle use. Clear to auscultation. Breath sounds equal bilaterally. GASTROINTESTINAL: Abdomen soft, non-tender, nondistended. +BS. MUSCULOSKELETAL: Extremities without clubbing, cyanosis, or edema. No obvious deformities. NEUROLOGICAL: Awake and alert. No obvious cranial nerve deficits. Motor grossly within normal limits. Able to move all extremities spontaneously. Normal speech. PSYCHIATRIC: Calm and cooperative. Results Procedures completed during hospitalization: None Labs on day of discharge: Labs from last 24 hours 01/02/18 06:00 RBC Folate 426 - Impressions ITS Impressions Chest X-Ray 12/30/17 17:46 CONCLUSION: No acute cardiopulmonary disease. Anterior dislocation of the right shoulder. Head CT 12/30/17 17:46 CONCLUSION: Slight chronic small vessel ischemic and atrophic changes chronic sinusitis . Shoulder X-Ray 12/30/17 19:43 CONCLUSION: Anterior shoulder dislocation on the right. Discharge Plan - Discharge Disposition Patient Disposition: Discharge to SNF - Discharge Condition Condition: Stable - Discharge Order Discharge Orders: Discharge Order (Routine); Ordered 01/05/18 Ordered By: Macy Sebastian - Physicians Team Primary Care Provider: Primary Care lEena King Attending Provider: Macy Sebastian Other Providers: [facility],[place] ; Dragan Mota MD ; [facility],Agency ; [facility],Agency
== END 2018-01-05 12:35 ==
LOC: NEDA 16:33 → NEPC 16:33 → NEPGCP 12-31 21:03 → N04 01-04 17:03
PROVIDERS: ADMIT Family Medicine; ATTEND Family Medicine